=== PATIENT | female | born 1995 | race American Indian/Alaskan Native ===

== ENCOUNTER 2021-05-01 02:37 | Emergency (ER) | payer SELFPAY ==
[2021-05-01] MEDS ORDERED: MORPHINE 4 MG/1 ML INJ IV ONE ×2 (03:11→05:29)
[2021-05-01] MEDS ORDERED: PANTOPRAZOLE 40 MG INJ IV ONE (03:11)
[2021-05-01] MEDS ORDERED: ONDANSETRON 4 MG/2 ML INJ IV ONE (03:11)
--- NOTE | 2021-05-01 03:13 | Emergency Department Report ---
ED Abdominal Pain HPI - General Chief Complaint: Abdominal Pain Stated Complaint: ABD PAIN PUI?: No Time Seen by Provider: 05/01/21 03:07 Source: patient Mode of arrival: Ambulatory Limitations: No Limitations - History of Present Illness Initial Comments: CC: abdominal pain HPI: This 25-year-old with no sniffing past history presents with severe abdominal pain. Diffuse crampy pain with vomiting. She denies fever diarrhea . Denies marijuana use. MD Complaint: abdominal pain -: Gradual, This evening Location: diffuse Radiation: none Severity scale (0 -10): 10 Quality: cramping, aching Consistency: constant Improves With: nothing Worsens With: nothing Associated Symptoms: nausea, vomiting - Related Data Previous Rx's Medication Instructions Recorded Last Taken Type HYDROcodone/APAP 5-325 [[place] 1 each PO Q6HR PRN #10 tablet 05/01/21 Unknown Rx 5/325] Promethazine [Phenergan] 25 mg PO Q6HR PRN #10 tab 05/01/21 Unknown Rx Allergies Allergy/AdvReac Type Severity Reaction Status Date / Time No Known Allergies Allergy Verified 05/01/21 02:47 ED Review of Systems ROS: Stated complaint: ABD PAIN Other details as noted in HPI Comment: All other systems reviewed and negative Constitutional: denies: chills, fever, malaise Cardiovascular: denies: chest pain Gastrointestinal: abdominal pain, nausea, vomiting ED Past Medical Hx - Past Medical History Previous Medical History?: No - Surgical History Past Surgical History?: No - Social History Smoking Status: Never Smoker Substance Use Type: None - Medications Home Medications: Home Medications Medication Instructions Recorded Confirmed Last Taken Type HYDROcodone/APAP 5-325 [[place] 1 each PO Q6HR PRN #10 tablet 05/01/21 Unknown Rx 5/325] Promethazine [Phenergan] 25 mg PO Q6HR PRN #10 tab 05/01/21 Unknown Rx ED Physical Exam - General Limitations: No Limitations General appearance: alert, anxious, other (Holding abdomen in severe pain) - Head Head exam: Present: atraumatic, normocephalic - Eye Eye exam: Present: normal appearance - ENT ENT exam: Present: mucous membranes moist - Neck Neck exam: Present: normal inspection, full ROM - Respiratory Respiratory exam: Present: normal lung sounds bilaterally. Absent: respiratory distress, wheezes, rales, rhonchi, stridor - Cardiovascular Cardiovascular Exam: Present: regular rate, normal rhythm. Absent: systolic murmur, diastolic murmur, rubs, gallop - GI/Abdominal GI/Abdominal exam: Present: soft, normal bowel sounds. Absent: distended, tenderness, guarding, rebound - Extremities Exam Extremities exam: Present: normal inspection - Back Exam Back exam: Present: normal inspection - Neurological Exam Neurological exam: Present: alert, oriented X3 - Psychiatric Psychiatric exam: Present: normal affect, anxious - Skin Skin exam: Present: warm, dry, intact, normal color. Absent: rash ED Course Vital Signs 05/01/21 05/01/21 05/01/21 02:39 03:01 03:21 Temperature 97.3 F L Pulse Rate 104 H Respiratory 26 H 22 22 Rate Blood Pressure 105/83 [Right] O2 Sat by Pulse 100 98 Oximetry 05/01/21 05/01/21 05/01/21 03:51 04:00 05:49 Temperature 97.7 F Pulse Rate 95 H Respiratory 20 20 20 Rate Blood Pressure 110/70 [Right] O2 Sat by Pulse 99 Oximetry 05/01/21 06:19 Temperature Pulse Rate Respiratory 20 Rate Blood Pressure [Right] O2 Sat by Pulse Oximetry ED Medical Decision Making - Lab Data Result diagrams: 05/01/21 03:40 05/01/21 03:40 - Radiology Data Radiology results: report reviewed CT abdomen pelvis: Impression no acute abnormality identified. - Medical Decision Making Differential diagnosis includes: Irritable bowel syndrome, food poisoning, cannabinoid hyperemesis syndrome. No evidence of inflammatory obstructive process on CT abdomen pelvis Prescribed promethazine [place]. Critical care attestation.: If time is entered above; I have spent that time in minutes in the direct care of this critically ill patient, excluding procedure time. ED Disposition Clinical Impression: Food poisoning Disposition: HOME / SELF CARE / HOMELESS Is pt being admited?: No Does the pt Need Aspirin: No Condition: Stable Instructions: Food Poisoning, Abdominal Pain, Adult, [id number], Abdominal Pain (ED) Prescriptions: HYDROcodone/APAP 5-325 [[place] 5/325] 1 each PO Q6HR PRN #10 tablet PRN Reason: Pain Promethazine [Phenergan] 25 mg PO Q6HR PRN #10 tab PRN Reason: Nausea Referrals: OBI CARR MD [Staff Physician] - 3-5 Days Forms: Work/School Release Form(ED)
[2021-05-01 04:15] VITALS: BP 110/70
[2021-05-01 04:17] LABS: Basophils % (Auto) 0.3 % (0.0-1.8); Hematocrit 36.2 % (30.3-42.9); Hemoglobin 11.3 gm/dl (10.1-14.3); Lymphocytes % (Auto) 11.1 % (13.4-35.0); Mean Corpuscular HGB Conc 31 % (30-34); Mean Corpuscular Volume 81 fl (79-97); Monocytes # (Auto) 0.2 K/mm3 (0.0-0.8); Monocytes % (Auto) 2.6 % (0.0-7.3); Platelet Count 270 K/mm3 (140-440); Red Blood Count 4.45 M/mm3 (3.65-5.03); Red Cell Distribution Width 14.9 % (13.2-15.2)
[2021-05-01 04:38] LABS: Alanine Aminotransferase 22 units/L (7-56); Albumin 4.5 g/dL (3.9-5); Blood Urea Nitrogen 10 mg/dL (7-17); Calcium 9.1 mg/dL (8.4-10.2); Hemolysis Index 4
[2021-05-01 04:40] LABS: BUN/Creatinine Ratio 17
--- NOTE | 2021-05-01 05:42 | Cat Scan Report ---
CT OF THE ABDOMEN AND PELVIS WITH INTRAVENOUS CONTRAST INDICATION / CLINICAL INFORMATION: Severe abdominal pain with nausea and vomiting. TECHNIQUE: The patient received 100 cc Omnipaque [address] scans at this location are performed using CT dose reduction for AL[place] by means of automated exposure control. COMPARISON: None available. FINDINGS: ABDOMEN: The liver, spleen, gallbladder, bile ducts, pancreas, adrenal glands and kidneys demonstrate no significant abnormality. There is no evidence of bowel obstruction, wall thickening or free air. No adenopathy is present. No vascular abnormality is seen. The lung bases are clear. PELVIS: The distal ureters and urinary bladder are normal. There is a small amount of free fluid in t he cul-de-sac. The uterus and ovaries are unremarkable. A normal appendix is present and there is no evidence of diverticulitis. I do not identify a hernia. No acute osseous abnormality is present. IMPRESSION: No acute abnormality is identified. Signer Name: Brad Cole MD Signed: 05/01/2021 5:38 AM Workstation Name: [id number]
== END 2021-05-01 07:23 | disposition home or self-care (01) ==
LOC: ED 02:37
DX: A05.9 Bacterial foodborne intoxication, unspecified (principal)
CPT/HCPCS: 36415; 74177; 80053; 83690; 84703; 85025; 96374; 96375; 99284; C9113; J2270; J2405; Q9967

== ENCOUNTER 2021-05-29 08:09 | Emergency (ER) | payer SELFPAY ==
--- NOTE | 2021-05-29 08:23 | Event Note ---
ED Screening Note Date of service: 05/29/21 Time: 08:22 ED Screening Note: Pleasant 24-year-old female presents emerged from chief complaint left lower quadrant abdominal pain left lower back pain. Patient has a history of ovarian cysts and reports this feels similar to when with something ruptured. Reports pain is aggravated with any movement. Reports nausea without vomiting. Denies any diarrhea. She denies any other known past medical history, current medications or known allergies to medications. Denies any chance of current . This initial assessment/diagnostic orders/clinical plan/treatment(s) is/are subject to change based on patients health status, clinical progression and re- assessment by fellow clinical providers in the ED. Further treatment and workup at subsequent clinical providers discretion. Patient/guardian urged not to elope from the ED as their condition may be serious if not clinically assessed and managed. Initial orders include: CBC, CMP, lipase, urinalysis, urine test, pelvic ultrasound
[2021-05-29 09:04] LABS: Basophils % (Auto) 0.5 % (0.0-1.8); Eosinophils % (Auto) 0.3 % (0.0-4.3); Hemoglobin 11.5 gm/dl (10.1-14.3); Lymphocytes # (Auto) 1.8 K/mm3 (1.2-5.4); Lymphocytes % (Auto) 22.5 % (13.4-35.0); Mean Corpuscular HGB Conc 31 % (30-34); Mean Corpuscular Volume 80 fl (79-97); Monocytes # (Auto) 0.5 K/mm3 (0.0-0.8); Monocytes % (Auto) 5.9 % (0.0-7.3); Platelet Count 285 K/mm3 (140-440); Red Cell Distribution Width 15.5 % (13.2-15.2)
[2021-05-29 09:17] LABS: Alanine Aminotransferase 18 units/L (7-56); Albumin 4.6 g/dL (3.9-5); Blood Urea Nitrogen 10 mg/dL (7-17); Hemolysis Index 10
[2021-05-29 09:18] LABS: BUN/Creatinine Ratio 17
[2021-05-29 09:32] LABS: Bilirubin,Urine NEG (Negative); Blood,Urine MOD (Negative); Color,Urine Yellow (Yellow); Mucus,Urine 3+ /HPF; Protein,Urine <15 mg/dL mg/dL (Negative); Urobilinogen,Urine < 2.0 mg/dL (<2.0)
--- NOTE | 2021-05-29 11:00 | Emergency Department Report ---
ED Abdominal Pain HPI - General Chief Complaint: Abdominal Pain Stated Complaint: STOMACH PAINS Time Seen by Provider: 05/29/21 10:50 Source: patient Mode of arrival: Ambulatory Limitations: No Limitations - History of Present Illness Initial Comments: Pleasant 24-year-old female presents emerged from chief complaint left lower quadrant abdominal pain left lower back pain. Patient has a history of ovarian cysts and reports this feels similar to when with something ruptured. Reports pain is aggravated with any movement. Reports nausea without vomiting. Denies any diarrhea. She denies any other known past medical history, current medications or known allergies to medications. Denies any chance of current . - Related Data Previous Rx's Medication Instructions Recorded Last Taken Type HYDROcodone/APAP 5-325 [[place] 1 each PO Q6HR PRN #10 tablet 05/01/21 Unknown Rx 5/325] Promethazine [Phenergan] 25 mg PO Q6HR PRN #10 tab 05/01/21 Unknown Rx Ibuprofen [Motrin 800 MG tab] 800 mg PO Q8HR PRN #30 tablet 05/29/21 Unknown Rx traMADoL [Ultram 50 MG tab] 50 mg PO Q4HR PRN #12 tablet 05/29/21 Unknown Rx Allergies Allergy/AdvReac Type Severity Reaction Status Date / Time No Known Allergies Allergy Verified 05/29/21 08:19 ED Review of Systems ROS: Stated complaint: STOMACH PAINS Other details as noted in HPI Comment: All other systems reviewed and negative Constitutional: denies: chills, fever Eyes: denies: eye pain, eye discharge, vision change ENT: denies: ear pain, throat pain Respiratory: denies: cough, shortness of breath, wheezing Cardiovascular: denies: chest pain, palpitations Endocrine: no symptoms reported Gastrointestinal: as per HPI, abdominal pain. denies: nausea, diarrhea Genitourinary: denies: urgency, dysuria, discharge Musculoskeletal: denies: back pain, joint swelling, arthralgia Skin: denies: rash, lesions Neurological: denies: headache, weakness, paresthesias Psychiatric: denies: anxiety, depression Hematological/Lymphatic: denies: easy bleeding, easy bruising ED Past Medical Hx - Past Medical History Previous Medical History?: No - Surgical History Past Surgical History?: No - Family History Family history: no significant - Social History Smoking Status: Never Smoker Substance Use Type: None - Medications Home Medications: Home Medications Medication Instructions Recorded Confirmed Last Taken Type HYDROcodone/APAP 5-325 [[place] 1 each PO Q6HR PRN #10 tablet 05/01/21 Unknown Rx 5/325] Promethazine [Phenergan] 25 mg PO Q6HR PRN #10 tab 05/01/21 Unknown Rx Ibuprofen [Motrin 800 MG tab] 800 mg PO Q8HR PRN #30 tablet 05/29/21 Unknown Rx traMADoL [Ultram 50 MG tab] 50 mg PO Q4HR PRN #12 tablet 05/29/21 Unknown Rx ED Physical Exam - General Limitations: No Limitations General appearance: alert, in no apparent distress - Head Head exam: Present: atraumatic, normocephalic - Eye Eye exam: Present: normal appearance, PERRL, EOMI Pupils: Present: normal accommodation - ENT ENT exam: Present: normal exam, normal orophraynx, mucous membranes moist - Neck Neck exam: Present: normal inspection. Absent: tenderness, meningismus - Respiratory Respiratory exam: Present: normal lung sounds bilaterally. Absent: respiratory distress, wheezes, rales, rhonchi, stridor - Cardiovascular Cardiovascular Exam: Present: regular rate, normal rhythm, normal heart sounds. Absent: systolic murmur, diastolic murmur, rubs, gallop - GI/Abdominal GI/Abdominal exam: Present: soft, tenderness (Tenderness to left lower quadrant, no rebound or guarding, no CVA tenderness bilaterally), normal bowel sounds. Absent: distended, guarding, rebound, rigid - Extremities Exam Extremities exam: Present: normal inspection, full ROM, normal capillary refill. Absent: tenderness, calf tenderness - Back Exam Back exam: Present: normal inspection, full ROM. Absent: tenderness, CVA tenderness (R), CVA tenderness (L) - Neurological Exam Neurological exam: Present: alert, oriented X3, normal gait - Psychiatric Psychiatric exam: Present: normal affect, normal mood - Skin Skin exam: Present: warm, dry, intact, normal color. Absent: rash ED Course Vital Signs 05/29/21 08:17 Temperature 98.9 F Pulse Rate 70 Respiratory 18 Rate Blood Pressure 140/80 [Left] O2 Sat by Pulse 100 Oximetry - Reevaluation(s) Reevaluation #1: 05/29/21 11:00 Patient nontoxic no acute distress vital signs are stable. Ultrasound, CBC, CMP, urinalysis urine test were ordered. Patient reports this feels very similar to when she has had a ruptured ovarian cyst in the past. She is unconcerned about being and states there is no chance she could be . 05/29/21 11:00 ED Medical Decision Making - Lab Data Result diagrams: 05/29/21 08:39 05/29/21 08:39 Lab Results 05/29/21 05/29/21 05/29/21 Range/Units 08:34 08:39 08:39 WBC 7.8 (4.5-11.0) K/mm3 RBC 4.60 (3.65-5.03) M/mm3 Hgb 11.5 (10.1-14.3) gm/dl Hct 37.0 (30.3-42.9) % MCV 80 (79-97) fl MCH 25 L (28-32) pg MCHC 31 (30-34) % RDW 15.5 H (13.2-15.2) % Plt Count 285 (140-440) K/mm3 Lymph % (Auto) 22.5 (13.4-35.0) % [place] % (Auto) 5.9 (0.0-7.3) % Eos % (Auto) 0.3 (0.0-4.3) % Baso % (Auto) 0.5 (0.0-1.8) % Lymph # (Auto) 1.8 (1.2-5.4) K/mm3 [place] # (Auto) 0.5 (0.0-0.8) K/mm3 Eos # (Auto) 0.0 (0.0-0.4) K/mm3 Baso # (Auto) 0.0 (0.0-0.1) K/mm3 Seg Neutrophils % 70.8 H (40.0-70.0) % Seg Neutrophils # 5.6 (1.8-7.7) K/mm3 Sodium 140 (137-145) mmol/L Potassium 3.5 L (3.6-5.0) mmol/L Chloride 104.0 (98-107) mmol/L Carbon Dioxide 21 L (22-30) mmol/L Anion Gap 19 mmol/L BUN 10 (7-17) mg/dL Creatinine 0.6 (0.6-1.2) mg/dL Estimated GFR > 60 ml/min BUN/Creatinine Ratio 17 % Glucose 91 (65-100) mg/dL Calcium 9.0 (8.4-10.2) mg/dL Total Bilirubin 0.40 (0.1-1.2) mg/dL AST 21 (5-40) units/L ALT 18 (7-56) units/L Alkaline Phosphatase 56 (35-129) units/L Total Protein 7.2 (6.3-8.2) g/dL Albumin 4.6 (3.9-5) g/dL Albumin/Globulin Ratio 1.8 % Urine Color Yellow (Yellow) Urine Turbidity Clear (Clear) Urine pH 6.0 (5.0-7.0) Ur Specific [place] 1.017 (1.003-1.030) Urine Protein <15 mg/dl (Negative) mg/dL Urine Glucose (UA) Neg (Negative) mg/dL Urine Ketones Tr (Negative) mg/dL Urine Blood Mod (Negative) Urine Nitrite Neg (Negative) Urine Bilirubin Neg (Negative) Urine Urobilinogen < 2.0 (<2.0) mg/dL Ur Leukocyte Esterase Neg (Negative) Urine WBC (Auto) 3.0 (0.0-6.0) /HPF Urine RBC (Auto) 5.0 (0.0-6.0) /HPF U Epithel Cells (Auto) < 1.0 (0-13.0) /HPF Urine Mucus 3+ /HPF Urine HCG, Qual (Negative) 05/29/21 Range/Units 11:17 WBC (4.5-11.0) K/mm3 RBC (3.65-5.03) M/mm3 Hgb (10.1-14.3) gm/dl Hct (30.3-42.9) % MCV (79-97) fl MCH (28-32) pg MCHC (30-34) % RDW (13.2-15.2) % Plt Count (140-440) K/mm3 Lymph % (Auto) (13.4-35.0) % [place] % (Auto) (0.0-7.3) % Eos % (Auto) (0.0-4.3) % Baso % (Auto) (0.0-1.8) % Lymph # (Auto) (1.2-5.4) K/mm3 [place] # (Auto) (0.0-0.8) K/mm3 Eos # (Auto) (0.0-0.4) K/mm3 Baso # (Auto) (0.0-0.1) K/mm3 Seg Neutrophils % (40.0-70.0) % Seg Neutrophils # (1.8-7.7) K/mm3 Sodium (137-145) mmol/L Potassium (3.6-5.0) mmol/L Chloride (98-107) mmol/L Carbon Dioxide (22-30) mmol/L Anion Gap mmol/L BUN (7-17) mg/dL Creatinine (0.6-1.2) mg/dL Estimated GFR ml/min BUN/Creatinine Ratio % Glucose (65-100) mg/dL Calcium (8.4-10.2) mg/dL Total Bilirubin (0.1-1.2) mg/dL AST (5-40) units/L ALT (7-56) units/L Alkaline Phosphatase (35-129) units/L Total Protein (6.3-8.2) g/dL Albumin (3.9-5) g/dL Albumin/Globulin Ratio % Urine Color (Yellow) Urine Turbidity (Clear) Urine pH (5.0-7.0) Ur Specific [place] (1.003-1.030) Urine Protein (Negative) mg/dL Urine Glucose (UA) (Negative) mg/dL Urine Ketones (Negative) mg/dL Urine Blood (Negative) Urine Nitrite (Negative) Urine Bilirubin (Negative) Urine Urobilinogen (<2.0) mg/dL Ur Leukocyte Esterase (Negative) Urine WBC (Auto) (0.0-6.0) /HPF Urine RBC (Auto) (0.0-6.0) /HPF U Epithel Cells (Auto) (0-13.0) /HPF Urine Mucus /HPF Urine HCG, Qual Negative (Negative) - Radiology Data Radiology results: report reviewed Patient: PENELOPE BEY MR#: [id number] : 1995 Acct:[id number] Age/Sex: 25 / F ADM Date: 05/29/21 Loc: ED Attending Dr: Ordering Physician: TATYANA MONGE Date of Service: 05/29/21 Procedure(s): US pelvic complete Accession Number(s): [id number] cc: TATYANA MONGE ULTRASOUND PELVIS COMPLETE INDICATION / CLINICAL INFORMATION: severe left sided pelvic pain. TECHNIQUE: Transabdominal. Duplex Color Doppler used: Yes. COMPARISON: CT abdomen pelvis with contrast 05/01/2021 FINDINGS: UTERUS: Anteverted - Appearance (if present): No significant abnormality. - Size in cm (if present): 6.9 x 3.8 x 4.5. - Endometrial Complex (if present): No significant abnormality.. Thickness in cm (if measured) = 1.4 - Mass lesions: None. - Additional findings: None. RIGHT ADNEXA: No significant ovarian cyst or mass. Normal color Doppler blood flow. 2.6 x 2.2 x 2.1 cm. LEFT ADNEXA: No significant ovarian cyst or mass. Normal color Doppler blood flow. 4.0 x 2.7 x 2.1 cm. URINARY BLADDER: Poorly distended but no gross abnormality. FREE FLUID: There is trace free fluid in the cul-de-sac which is likely physiologic. ADDITIONAL FINDINGS: None. IMPRESSION: No significant abnormality identified. Trace pelvic ascites. Signer Name: Larry Chavez Jr, MD Signed: 05/29/2021 11:05 AM Workstation Name: [id number] Transcribed By: TTR Dictated By: LARRY CHAVEZ JR, MD Electronically Authenticated By: LARRY CHAVEZ JR, MD Signed Date/Time: 05/29/21 1105 - Medical Decision Making Patient nontoxic no acute distress. Vital signs stable. Ultrasound was not consistent with ovarian torsion and only showed a trace amount of pelvic fluid which I suspect is likely due to a recently ruptured cyst. Urine was unremarkable. test was negative. Lab work was unremarkable. Patient was given pain medication and discharged home with pain medication and outpatient [facility] follow-up. Return to the ER with any change or worsening symptoms. Did offer pelvic examination to rule out PID however she politely declined stating low concern for this. - Differential Diagnosis Ovarian cyst, dysmenorrhea, UTI Critical care attestation.: If time is entered above; I have spent that time in minutes in the direct care of this critically ill patient, excluding procedure time. ED Disposition Clinical Impression: Left lower quadrant abdominal pain Disposition: 01 HOME / SELF CARE / HOMELESS Is pt being admited?: No Condition: Stable Instructions: Abdominal Pain (ED), Abdominal Pain, Adult, [id number] Prescriptions: Ibuprofen [Motrin 800 MG tab] 800 mg PO Q8HR PRN #30 tablet PRN Reason: Pain , Severe (7-10) traMADoL [Ultram 50 MG tab] 50 mg PO Q4HR PRN #12 tablet PRN Reason: Pain Referrals: [facility] [Provider Group] - 3-5 Days Forms: Work/School Release Form(ED) Time of Disposition: 11:32
--- NOTE | 2021-05-29 11:08 | Ultrasound Report ---
ULTRASOUND PELVIS COMPLETE INDICATION / CLINICAL INFORMATION: severe left sided pelvic pain. TECHNIQUE: Transabdominal. Duplex Color Doppler used: Yes. COMPARISON: CT abdomen pelvis with contrast 05/01/2021 FINDINGS: UTERUS: Anteverted - Appearance (if present): No significant abnormality. - Size in cm (if present): 6.9 x 3.8 x 4.5. - Endometrial Complex (if present): No significant abnormality.. Thickness in cm (if measured) = 1.4 - Mass lesions: None. - Additional findings: None. RIGHT ADNEXA: No significant ovarian cyst or mass. Normal color Doppler blood flow. 2.6 x 2.2 x 2.1 c m. LEFT ADNEXA: No significant ovarian cyst or mass. Normal color Doppler blood flow. 4.0 x 2.7 x 2.1 cm . URINARY BLADDER: Poorly distended but no gross abnormality. FREE FLUID: There is trace free fluid in the cul-de-sac which is likely physiologic. ADDITIONAL FINDINGS: None. IMPRESSION: No significant abnormality identified. Trace pelvic ascites. Signer Name: Los Sheth Jr, MD Signed: 05/29/2021 11:05 AM Workstation Name: [id number]
[2021-05-29 11:17] LABS: HCG Qualitative,Urine Negative (Negative)
[2021-05-29] MEDS ORDERED: KETOROLAC 30 MG/1 ML INJ IM ONE (11:31)
[2021-05-29 12:30] VITALS: BP 127/70
== END 2021-05-29 12:30 | disposition home or self-care (01) ==
LOC: ED 08:09
DX: R10.32 Left lower quadrant pain (principal); Z79.899 Other long term (current) drug therapy
CPT/HCPCS: 36415; 76856; 80053; 81001; 81025; 84703; 85025; 96372; 99284